=== PATIENT | male | born 1945 | race Caucasian/White ===

== ENCOUNTER 2020-03-04 01:33 | Outpatient (CLI) | payer MEDICARE, SELFPAY ==
[2020-03-04 19:24] LABS: SARS-CoV-2 RNA PCR Negative
== END 2020-03-04 01:34 | disposition home or self-care (01) ==
LOC: ANHCOVIDDT 01:33
PROVIDERS: PCP Physician Assistant; Visit Provider Urology
DX: Z01.812 Encounter for preprocedural laboratory examination (principal); Z20.828 Contact with and (suspected) exposure to other viral communicable diseases
CPT/HCPCS: 87635; C9803; U0003

== ENCOUNTER 2020-03-04 08:36 | Outpatient (CLI) | payer MEDICARE, OTHER, SELFPAY ==
--- NOTE | 2020-03-04 08:41 | ECG_ITS ---
Measurements Intervals [place] Rate: 67 P: 56 CA: 133 QRS: 53 QRSD: 149 T: 46 QT: 389 QTc: 413 Interpretive Statements SINUS RHYTHM WITH MARKED SINUS ARRHYTHMIA VENTRICULAR PREMATURE COMPLEXES RIGHT BUNDLE BRANCH BLOCK BORDERLINE ST-T WAVE ABNORMALITY- ANTEROLATERAL LEADS ABNORMAL ECG Electronically Signed On 03-04-2020 9:10:02 CDT by Kamari Weeks D.O.
== END 2020-03-04 08:37 | disposition home or self-care (01) ==
PROVIDERS: PCP Physician Assistant; Visit Provider Urology
DX: C61 Malignant neoplasm of prostate (principal); I45.10 Unspecified right bundle-branch block
CPT/HCPCS: 87635; 93005; C9803; U0003

== ENCOUNTER 2020-03-06 01:22 | Day surgery (SDC) | payer MEDICARE, OTHER, SELFPAY ==
--- NOTE | 2020-03-03 08:26 | P.HP_ITS ---
History of Present Illness History of Present Illness Consent: Risks, benefits, and alternatives have been discussed and questions answered. Patient agrees to proceed with procedure. Chief complaint: prostate CA Narrative: Tom Aj is a 74 year old male with clinically localize adenocarcinoma of prostate, scheduled for definitive pelvic IMRT. He's opted for placement of SpaceOAR to minimize risk of rectal irritation. PSA: 9.1. Referred by Dr. Rafaela Pritchett. Review of Systems Cardiovascular: Cardiovascular: Denies chest pain, Denies lightheadedness, Denies palpitations and Denies dyspnea Respiratory: Respiratory: Denies dyspnea Gastrointestinal: Gastrointestinal: Denies diarrhea, Denies nausea and Denies vomiting Genitourinary: Genitourinary: Denies hematuria and Denies dysuria Endocrine: Endocrine: Denies palpitations Exam 2 Const: General: no acute distress Resp: Effort & Inspection: normal respiratory effort GI: Inspection: non-distended GI Palp: No abdominal tenderness and No Guarding due to palpation present (GI) Auscultation: normal bowel sounds Assessment and Plan Assessment and plan (1) Prostate cancer: Code(s): C61 - Malignant neoplasm of prostate Status: Acute Assessment and Plan: * Transrectal ultrasound with transperineal placement of SpaceOAR. Pt. aware of risks of this procedure including, but not limited to, rectal injury, urinary tract infection with possible sepsis or septic shock, hematuria and inability to deliver the SpaceOAR. He also aware there is no alternative procedure to accomplish the same ends at this time.
[2020-03-03 14:01] VITALS: BMI 27.5
--- NOTE | 2020-03-06 06:51 | WPDHPUPDATE1 ---
History and Physical Update Update Date/Time: 03/06/20 06:51 History and Physical has been reviewed, including an updated exam of the patient. There are NO changes in the patient's condition. Risks, benefits, and alternatives have been discussed and questions answered. Patient agrees to proceed with procedure.
[2020-03-06] MEDS: LACTATED RINGERS 1,000 ML 30 ML IV CONT (11:18)
--- NOTE | 2020-03-06 11:18 | P.PNAN_ITS ---
Anes - Initial Pre Proc Eval Procedure: Operation Date: 03/06/20 13:30 Proposed Procedures p Insertion SpaceOAR Hydrogel System - Stu Aguilar MD Date/Time: 03/06/20 11:18 Surgeon: Stu Aguilar MD Pre Op Diagnosis: prostate CA Patient Data Age: 74 Gender: M Height: 6 ft 3 in Weight: 100 kg Allergies Allergy/AdvReac Type Severity Reaction Status Date / Time No Known Allergies Allergy Verified 03/03/20 13:55 Home Medications Medication Instructions Recorded Confirmed Type multivit with min-folic acid 0.4 mg PO DAILY 03/03/20 03/03/20 History [Adult One Daily Multivitamin] paroxetine HCl 20 mg PO HS 03/03/20 03/03/20 History Patient hx anesthesia problems: none Family hx anesthesia problems: none [facility] Past Medical History Medical History Anxiety Prostate cancer Social History Social History Smoking packs per day: 1 Smoking cigarettes per day: 20.0 Years smoked: 50 Smoking pack-years: 50.00 Smoking status: Former smoker Tobacco type: cigarettes Smoking end date: 06/06/14 Substance use type: does not use Living arrangements: with family Spiritual care concerns: No Anes - Eval Final PreProcedure Day of Procedure 03/06/20 11:18 Patient weight: overweight Heart: regular rate and rhythm Lungs: clear to auscultation Airway: Mallampati scale class II Neurological: alert and oriented Last oral intake: >/= 8 hours ASA classification: III Emergent: no Anesthetic plan: proceed Anesthesia type and monitoring: general GIVS and standard monitoring Informed Consent: The patient's anesthetic plan and its attendant risks and benefits were discussed with the patient/family/POA. Questions were solicited and answers provided to the satisfaction of the patient/family/POA.
[2020-03-06 11:22] LABS: Glucose Point of Care 86 (65-105)
[2020-03-06 12:14] VITALS: BP 96/61; PULSE 71; RESP 18; TEMP 36.1; O2SAT 98
--- NOTE | 2020-03-06 13:09 | PM.PROC ---
Procedure Note - Detailed Date of procedure: 03/06/20 Pre-op diagnosis: prostate CA Post-op diagnosis: same Procedure performed: Insertion SpaceOAR Description of procedure: This patient has been diagnosed with prostate cancer. Patient has met with a radiation oncologist who has prescribed a course of radiation for treatment of the malignancy. Please refer to the Radiation Oncologist's note for radiation method, dose, number of fractions. After discussing with the radiation oncologist and the patient, it has been agreed upon to proceed with SpaceOAR placement. The purpose of SpaceOAR is to reduce rectal irradiation during radiation therapy by placing an absorbable polyethylene glycol (PEG) hydrogel (SpaceOAR) into perirectal fat space, thereby pushing the rectum away from the prostate. Prior to the procedure, a timeout was performed confirming the patient's identity and planned the procedure. Anesthesia was induced without complication. Antibiotics were administered prophylactically, and the patient completed an enema at home prior to the procedure. The patient was positioned in the dorsal lithotomy position. A transrectal ultrasound probe was inserted per rectum with clear visualization of the prostatic base and apex. SpaceOAR hydrogel was prepared as described in the pyrotechnics press tender?s 'Instructions For Use'. Under transrectal ultrasound guidance, a 15 cm 18G needle was inserted, transperineal, through the rectourethralis muscle and the needle tip advanced into the perirectal fat posterior to the prostate. The needle position, and downward bevel, were confirmed in both sagittal and axial gar. 3-5cc of Sterile Saline was used to hydro-dissect the space between the Denonvilliers? fascia and anterior rectal wall. Aspiration did not yield any bleeding. With the needle tip at mid gland, the axial field was viewed to confirm the needle was not in the rectal wall -- movement of the needle tip without corresponding movement of the rectal wall confirmed perirectal placement. The assembled SpaceOAR delivery system was then attached to the 18G needle. Under ultrasound guidance in the sagittal plane, a smooth, continuous injection technique was used to dispense all 10cc of the SpaceOAR hydrogel into the space between the prostate and rectum. Optimal visualization of the needle during hydrogel administration was maintained at all times. An axial measurement of the space between the prostate (mid gland) and rectum immediately post-SpaceOAR injection was noted and measured [60mm]. No suspected penetration or compromise of the rectal wall occurred. Anesthesia: GLMA Surgeon: Stu Aguilar MD Estimated blood loss (mL): 0 Drains: No Packing: No Pathology: none sent Complications: No immediate complications Condition: stable Disposition: PACU
[2020-03-06] MEDS: ceFAZolin 2 GM/D5W 50 ML 2 GM/50 ML BAG IVPB (13:33)
[2020-03-06 13:56] VITALS: BP 114/72; PULSE 69; RESP 14; O2SAT 97
[2020-03-06 14:26] VITALS: BP 120/73; PULSE 64; RESP 14
[2020-03-06 14:56] VITALS: BP 123/77; PULSE 66; RESP 14
== END 2020-03-06 15:05 | disposition home or self-care (01) ==
PROVIDERS: PCP Physician Assistant; Visit Provider Urology
PROC: (CPT 55874; principal; 2020-03-06 13:30)
DX: C61 Malignant neoplasm of prostate (principal); F41.9 Anxiety disorder, unspecified; Z87.891 Personal history of nicotine dependence
CPT/HCPCS: 55874; A9270; C1889; J0690; J2405; J2704; J3010; J7120